=== PATIENT | female | born 1950 | race Caucasian/White ===

== ENCOUNTER 2016-06-12 07:02 | Day surgery (SDC) | payer OTHER ==
[2016-06-12] MEDS ORDERED: NS 1,000 ML ONE (07:40)
[2016-06-12 08:10] LABS: BASO% 2.7 % (0.0-0.8); EOS# 0.18 X1000 (0.0-0.7); EOS% 9.6 % (0.0-10.0); HEMATOCRIT 44.2 % (37.0-47.0); HEMOGLOBIN 14.7 g/dL (12.0-16.0); LYMPH# 1.06 X1000 (1.2-3.4); LYMPH% 56.4 % (20.5-51.1); MANUAL DIFF NEEDED? YES; MCH 31.2 PG (27-31); MCHC 33.3 g/dL (33-37); MCV 93.8 FL (81-99); MONO# 0.43 X1000 (0.11-0.59); MONO% 22.9 % (1.7-9.3); MPV 9.4 FL (7.4-10.4); NEUT% 8.4 % (42.2-75.2); PLT 187 X1000 (130-400); RBC 4.71 XMIL (4.2-5.4)
[2016-06-12 08:18] LABS: EOS 8 % (1-10); LYMPHS 64 % (21-51); MONO 18 % (1-9)
[2016-06-12] MEDS ORDERED: SENSORCAINE-MPF 0.5%/EPI 1:200,000 ONE (09:01)
[2016-06-12] MEDS ORDERED: SENSORCAINE-MPF 0.5%/EPI 1:200,000 INJ ONE (09:10)
[2016-06-12] MEDS ORDERED: DIPRIVAN 1% ONE (10:00)
[2016-06-12] MEDS ORDERED: VERSED ONE (10:00)
[2016-06-12 10:23] VITALS: BP 114/75
[2016-06-12] MEDS ORDERED: XYLOCAINE-MPF 2% ONE (10:48)
[2016-06-12 11:45] LABS: FLOW CYTOMETERY SOURCE BONE MARROW; LEUKEMIA LYMPHOMA BY FLOW REFERRED FOR TESTING
== END 2016-06-12 10:25 | disposition home or self-care (01) ==
LOC: ENDO 07:02
PROVIDERS: ATTEND Internal Medicine Hematology & Oncology
DX: D70.9 Neutropenia, unspecified (principal); E03.9 Hypothyroidism, unspecified; F41.9 Anxiety disorder, unspecified; M19.90 Unspecified osteoarthritis, unspecified site; Z79.899 Other long term (current) drug therapy; F17.210 Nicotine dependence, cigarettes, uncomplicated
CPT/HCPCS: 85025; 85999; 88305; 88311; 88313; J2250; J7030; S0020